=== PATIENT | female | born 2000 | race Caucasian/White ===

== ENCOUNTER → 2019-11-05 16:17 | Outpatient (BNVA) | payer MEDICAID, SELFPAY | PROVIDERS: Visit Provider Nurse Practitioner Family | DX: L65.9 Nonscarring hair loss, unspecified (principal); L98.9 Disorder of the skin and subcutaneous tissue, unspecified; N92.6 Irregular menstruation, unspecified; R32 Unspecified urinary incontinence; R53.83 Other fatigue; Z72.51 High risk heterosexual behavior | CPT/HCPCS: 80053; 81003; 81025; 82306; 82607; 82728; 82746; 83550; 84443; 85025; 87086; 87491; 87591; 87661 ==

== ENCOUNTER → 2020-05-16 14:47 | Outpatient (BNVA) | payer OTHER, SELFPAY | PROVIDERS: Visit Provider Family Medicine | DX: J02.9 Acute pharyngitis, unspecified (principal) | CPT/HCPCS: 87071; 87880 ==

== ENCOUNTER → 2024-09-16 14:19 | Outpatient (BNVA) | payer OTHER, SELFPAY | PROVIDERS: PCP Nurse Practitioner Family; Visit Provider Nurse Practitioner Family | DX: E03.9 Hypothyroidism, unspecified (principal); R53.83 Other fatigue; Z13.6 Encounter for screening for cardiovascular disorders; M89.8X7 Other specified disorders of bone, ankle and foot | CPT/HCPCS: 73610; 80053; 80061; 82306; 82607; 83036; 84439; 84443; 85025 ==

== ENCOUNTER → 2025-01-05 15:00 | Outpatient (BNVA) | payer OTHER, SELFPAY | PROVIDERS: PCP Nurse Practitioner Family; Visit Provider Nurse Practitioner Family | DX: R21 Rash and other nonspecific skin eruption (principal) | CPT/HCPCS: 84439; 84443; 86003; 86008 ==

== ENCOUNTER → 2025-01-22 11:46 | Outpatient (BNVA) | payer OTHER, SELFPAY | PROVIDERS: PCP Nurse Practitioner Family; Visit Provider Nurse Practitioner Family | DX: E03.9 Hypothyroidism, unspecified (principal); R73.9 Hyperglycemia, unspecified | CPT/HCPCS: 80053; 82306; 83036; 85025 ==